=== PATIENT | female | born 1965 | race Two or more races ===

== ENCOUNTER 2024-02-05 10:44 | Inpatient (IN) | payer MEDICAID, OTHER ==
[~2024-02-05] VITALS: Ht 157.5 cm; Wt 51.8 kg
[2024-02-05] MEDS: ONDANSETRON HCL 4 MG/2 ML VIAL IV ONE (11:20)
[2024-02-05] MEDS: LORazepam 2MG/ML-1ML VIAL IV ONE ×3 (11:21→17:15)
[2024-02-05] MEDS: SODIUM CHLORIDE 0.9% 2,000 ML IV ONE (11:23)
[2024-02-05 11:50] LABS: Basophils # (auto) 0.1 10 ^3/uL (0-0.2); Basophils % (auto) 0.9 % (0.0-2.0); Eosinophils # (auto) 0 10 ^3/uL (0-0.8); Eosinophils % (auto) 0.1 % (0.0-7.0); Hematocrit 31.1 % (41.0-53.0); Hemoglobin 9.4 g/dL (13.5-17.5); Lymphocytes # (auto) 1.1 10 ^3/uL (0.4-5.4); Lymphocytes % (auto) 9.8 % (10.0-50.0); Mean Corpuscular Hemoglobin 20.2 pg (28.0-32.0); Mean Corpuscular Hgb Conc. 30.1 g/dL (32.0-36.0); Mean Corpuscular Volume 66.9 fL (80.0-100.0); Monocytes # (auto) 0.7 10 ^3/uL (0-1.3); Monocytes % (auto) 6.2 % (0.0-12.0); Neutrophils # (auto) 9.2 10 ^3/uL (1.6-8.6); Nucleated Red Blood Cells % 0.1 %; Red Blood Cells 4.65 10^6/uL (4.5-5.90); Red Cell Distribution Width 21.5 % (11.8-14.3); White Blood Cell 11.1 10^3/uL (4.4-10.8)
[2024-02-05 12:06] LABS: Alanine Aminotransferase 27 U/L (7-40); Albumin 3.5 g/dL (3.2-4.8); Alkaline Phosphatase 151 U/L (46-116); Anion Gap 8 (5-15); Aspartate Aminotransferase 31 U/L (13-40); Blood Urea Nitrogen 31 mg/dL (9-23); Carbon Dioxide 19 mmol/L (20-30); Chloride 107 mmol/L (98-107); Glucose 98 mg/dL (74-106); Potassium 3.9 mmol/L (3.5-5.1); Sodium 134 mmol/L (136-145)
[2024-02-05 12:07] LABS: Bilirubin, Total 0.2 mg/dL (0.2-1.0); Total Protein 6.9 g/dL (5.7-8.2)
[2024-02-05 12:32] VITALS: PULSE 120; O2SAT 98
[2024-02-05 12:56] LABS: Anisocytosis Moderate; Hypochromia Moderate; Platelet Estimate Increased
[2024-02-05] MEDS: SODIUM CHLORIDE 0.9% 1,000 ML IV ONE (17:21)
[2024-02-05 17:35] LABS: Free T3 2.39 pg/mL (2.3-4.2); Free T4 (Free Thyroxine) 0.92 ng/dL (0.89-1.76)
[2024-02-05] MEDS: SODIUM CHLORIDE 0.9% 1,000 ML IV SCH (21:12)
[2024-02-05] MEDS ORDERED: hydrALAZINE HCL 20 MG/ML VL IV PRN (21:30)
[2024-02-05] MEDS ORDERED: MORPHINE SULFATE INJ 2 MG/ml SYRG IV PRN (23:45)
[2024-02-05] MEDS ORDERED: NITROGLYCERIN 0.4 MG SL TAB SL PRN (23:45)
[2024-02-06] VITALS (7 sets, daily range): BP systolic 139–155; BP diastolic 82–91; PULSE 88–121; RESP 13–26; TEMP 97.5–98.6; O2SAT 94–100
[2024-02-06 05:35] LABS: Alanine Aminotransferase 22 U/L (7-40); Albumin 2.9 g/dL (3.2-4.8); Alkaline Phosphatase 122 U/L (46-116); Anion Gap 9 (5-15); Aspartate Aminotransferase 29 U/L (13-40); BUN/Creatinine Ratio 19.7 (10.0-20.0); Blood Urea Nitrogen 12 mg/dL (9-23); Calcium 8.2 mg/dL (8.7-10.4); Carbon Dioxide 18 mmol/L (20-30); Chloride 113 mmol/L (98-107); Glucose 74 mg/dL (74-106); Potassium 3.2 mmol/L (3.5-5.1); Sodium 140 mmol/L (136-145)
[2024-02-06 05:36] LABS: Bilirubin, Total 0.3 mg/dL (0.2-1.0); Total Protein 5.8 g/dL (5.7-8.2)
[2024-02-06] MEDS: ONDANSETRON HCL 4 MG/2 ML VIAL IV PRN (08:53)
[2024-02-06] MEDS: ENOXAPARIN SOD 30 MG/0.3 ML SYRINGE SC SCH (09:05)
[2024-02-06] MEDS: GABAPENTIN 100 MG CAP PO SCH (15:15)
[2024-02-06] MEDS: cloNIDine 0.1 mg/24hr 7 DAY PATCH TD SCH (15:23)
[2024-02-06 16:40] LABS: % Iron Saturation 13.9 % (15-50)
[2024-02-06] MEDS: POTASSIUM CHL 20 Meq TABLET PO ONE (18:46)
[2024-02-06] MEDS: BUPRENORPHINE -NALOXONE 2-0.5mg SL TAB SL ONE (20:13)
[2024-02-06] MEDS: LORazepam 2MG/ML-1ML VIAL IV PRN (22:00)
[2024-02-07] MEDS: HYDROcodone-ACET 5/325MG TAB PO PRN (03:53)
[2024-02-07 08:00] VITALS: PULSE 83
[2024-02-07 13:00] VITALS: BP 142/90; PULSE 106; RESP 16; TEMP 98.4; O2SAT 97
[2024-02-07] MEDS: HYDROmorphone HCL 2 MG/ML VL/or syr IV ONE (13:28)
[2024-02-07] MEDS: BUPRENORPHINE -NALOXONE 2-0.5mg SL TAB SL SCH ×2 (15:02→21:00)
[2024-02-07] MEDS: PANTOPRAZOLE 40 MG TAB PO ONE (16:48)
[2024-02-07 20:00] VITALS: PULSE 110; PULSE 97; RESP 22; O2SAT 97
[2024-02-07 21:00] VITALS: BP 146/83; PULSE 97; RESP 22; TEMP 99.4; O2SAT 97
[2024-02-07] MEDS ORDERED: TEMAZEPAM 15 MG CAP PO ONE (21:45)
[2024-02-08] VITALS (8 sets, daily range): BP systolic 107–142; BP diastolic 51–84; PULSE 88–104; RESP 20–28; TEMP 97.2–98.8; O2SAT 93–98
[2024-02-08] MEDS: DICYCLOMINE HCL 10 MG CAP PO PRN (09:05)
[2024-02-08] MEDS: PANTOPRAZOLE 40 MG/10 ML VIAL INJ IV SCH (17:06)
[2024-02-08] MEDS: MAALOX PLUS or MAALOX 30 ML PO PRN (17:07)
[2024-02-09] VITALS (10 sets, daily range): BP systolic 111–130; BP diastolic 67–75; PULSE 79–112; RESP 18–22; TEMP 97.2–99.6; O2SAT 95–100
[2024-02-09 06:13] LABS: Anion Gap 6 (5-15); Carbon Dioxide 26 mmol/L (20-30); Chloride 104 mmol/L (98-107); Potassium 3.1 mmol/L (3.5-5.1); Sodium 136 mmol/L (136-145)
[2024-02-09 06:14] LABS: Calcium 7.7 mg/dL (8.7-10.4)
[2024-02-09 06:20] LABS: BUN/Creatinine Ratio 18.2 (10.0-20.0); Blood Urea Nitrogen 10 mg/dL (9-23); Glucose 134 mg/dL (74-106); Magnesium 1.1 mg/dL (1.6-2.6)
[2024-02-09] MEDS: HYDROmorphone HCL 2 MG/ML VL/or syr IV PRN ×2 (09:48→13:58)
[2024-02-09] MEDS: MAGNESIUM SULFATE 1GM/100ML 100 ML IV SCH ×2 (11:00→20:38)
[2024-02-09] MEDS ORDERED: VANCOMYCIN PER PHARMACY 0 MG IV SCH (11:00)
[2024-02-09] MEDS: GABAPENTIN 300 MG CAP PO SCH (13:15)
[2024-02-09] MEDS: CALCIUM CARB 500 MG CHEW TAB PO SCH (13:18)
[2024-02-09] MEDS: VANCOMYCIN 1GM/200ML 200 ML IV ONE (13:34)
[2024-02-09] MEDS: NICOTINE 21MG/24 HR TOPICAL PATCH TD SCH (13:41)
[2024-02-09] MEDS: METOCLOPRAMIDE HCL 5MG/ml INJ 2ml VIAL IV PRN (13:52)
[2024-02-09] MEDS: ACETAMINOPHEN 325 MG TAB PO PRN (18:27)
[2024-02-09] MEDS: FERROUS SULFATE 325mg EC TAB PO SCH (18:45)
[2024-02-09] MEDS: D5W/SOD CHL 0.45%/KCL 40MEQ 1,000 ML IV SCH (20:30)
[2024-02-09] MEDS: MUPIROCIN 2% OINT 15gm or 22gm FOR MRSA NARES EACHNOSTRI SCH (21:47)
[2024-02-09] MEDS: VANCOMYCIN 750mg/150ml 150 ML IV SCH (22:49)
[2024-02-09] MEDS: DOCUSATE SOD 100 MG CAP PO PRN (23:29)
[2024-02-09] MEDS: POLYETHYLENE GLYCOL 17 GM PWDR PO ONE (23:30)
[2024-02-10] VITALS (8 sets, daily range): BP systolic 113–147; BP diastolic 70–97; PULSE 85–109; RESP 18–21; TEMP 98.3–99; O2SAT 98–100
[2024-02-10 06:19] LABS: Hematocrit 25.7 % (36.0-46.0); Lymphocytes # (auto) 1.2 10 ^3/uL (0.4-5.4); Monocytes # (auto) 0.7 10 ^3/uL (0-1.3); Neutrophils # (auto) 2.4 10 ^3/uL (1.6-8.6); White Blood Cell 4.3 10^3/uL (4.4-10.8)
[2024-02-10 06:21] LABS: Basophils # (auto) 0.1 10 ^3/uL (0-0.2); Basophils % (auto) 1.2 % (0.0-2.0); Eosinophils # (auto) 0.1 10 ^3/uL (0-0.8); Eosinophils % (auto) 1.6 % (0.0-7.0); Hemoglobin 7.8 g/dL (12.2-16.2); Lymphocytes % (auto) 27.8 % (10.0-50.0); Mean Corpuscular Hemoglobin 21.2 pg (28.0-32.0); Mean Corpuscular Hgb Conc. 30.5 g/dL (32.0-36.0); Mean Corpuscular Volume 69.7 fL (80.0-100.0); Monocytes % (auto) 15.2 % (0.0-12.0); Neutrophils % (auto) 54.2 % (37.0-80.0); Red Blood Cells 3.69 10^6/uL (4.0-5.20)
[2024-02-10] MEDS: OXYCODONE W/ ACETAMINOPHEN 5/325MG TABLET PO PRN (06:31)
[2024-02-10 06:38] LABS: Carbon Dioxide 25 mmol/L (20-30); Chloride 105 mmol/L (98-107); Potassium 3.4 mmol/L (3.5-5.1)
[2024-02-10 06:39] LABS: Anion Gap 6 (5-15); Sodium 136 mmol/L (136-145)
[2024-02-10 06:40] LABS: Calcium 7.7 mg/dL (8.7-10.4)
[2024-02-10 06:43] LABS: Glucose 108 mg/dL (74-106)
[2024-02-10 06:44] LABS: Blood Urea Nitrogen 7 mg/dL (9-23)
[2024-02-10 08:34] LABS: Platelet Estimate Adequate
[2024-02-10 08:35] LABS: Anisocytosis Slight; Hypochromia Moderate
[2024-02-10] MEDS: HYDROmorphone HCL 2 MG/ML VL/or syr IV ONE (11:16)
[2024-02-11 05:00] VITALS: BP 136/71; PULSE 100; RESP 20; TEMP 98.4; O2SAT 97
[2024-02-11 05:36] LABS: Basophils # (auto) 0.1 10 ^3/uL (0-0.2); Eosinophils # (auto) 0.1 10 ^3/uL (0-0.8); Hemoglobin 7.4 g/dL (12.2-16.2); Monocytes # (auto) 0.8 10 ^3/uL (0-1.3)
[2024-02-11 05:38] LABS: Basophils % (auto) 1.2 % (0.0-2.0); Eosinophils % (auto) 1.5 % (0.0-7.0); Hematocrit 24.6 % (36.0-46.0); Lymphocytes # (auto) 1.4 10 ^3/uL (0.4-5.4); Lymphocytes % (auto) 23.9 % (10.0-50.0); Mean Corpuscular Hemoglobin 20.9 pg (28.0-32.0); Mean Corpuscular Hgb Conc. 30.2 g/dL (32.0-36.0); Mean Corpuscular Volume 69.3 fL (80.0-100.0); Monocytes % (auto) 13.2 % (0.0-12.0); Neutrophils # (auto) 3.5 10 ^3/uL (1.6-8.6); Neutrophils % (auto) 60.2 % (37.0-80.0); Nucleated Red Blood Cells % 0.1 %; Red Blood Cells 3.55 10^6/uL (4.0-5.20); Red Cell Distribution Width 23.7 % (11.8-14.3); White Blood Cell 5.8 10^3/uL (4.4-10.8)
[2024-02-11 05:47] LABS: Chloride 107 mmol/L (98-107); Potassium 3.8 mmol/L (3.5-5.1); Sodium 137 mmol/L (136-145)
[2024-02-11 05:48] LABS: Anion Gap 3 (5-15); Carbon Dioxide 27 mmol/L (20-30)
[2024-02-11 05:49] LABS: Calcium 7.5 mg/dL (8.7-10.4)
[2024-02-11 05:53] LABS: Glucose 103 mg/dL (74-106)
[2024-02-11 05:54] LABS: Blood Urea Nitrogen 7 mg/dL (9-23)
[2024-02-11 08:00] VITALS: PULSE 105
[2024-02-11 09:35] VITALS: BP 145/82; PULSE 101; RESP 19; TEMP 97.8; O2SAT 98
[2024-02-11] MEDS: HYDROmorphone HCL 2 MG/ML VL/or syr IV PRN (13:58)
[2024-02-11] MEDS: cefTRIAXone 1GM/50ML D5W 50 ML IV SCH (13:58)
[2024-02-11 16:56] VITALS: BP 129/68; PULSE 103; RESP 19; TEMP 97.8; O2SAT 97
[2024-02-11 20:00] VITALS: PULSE 113; RESP 20
[2024-02-11 21:00] VITALS: BP 127/68; PULSE 100; RESP 20; TEMP 97.6; O2SAT 97
[2024-02-12] VITALS (8 sets, daily range): BP systolic 127–148; BP diastolic 69–84; PULSE 73–108; RESP 19–20; TEMP 97.9–98.4; O2SAT 96–99
[2024-02-12 05:13] LABS: Hematocrit 23.6 % (36.0-46.0)
[2024-02-12 05:15] LABS: Hemoglobin 7.3 g/dL (12.2-16.2)
[2024-02-12 05:26] LABS: Chloride 106 mmol/L (98-107); Potassium 3.9 mmol/L (3.5-5.1); Sodium 137 mmol/L (136-145)
[2024-02-12 05:27] LABS: Anion Gap 5 (5-15); Calcium 7.8 mg/dL (8.7-10.4); Carbon Dioxide 26 mmol/L (20-30)
[2024-02-12 05:32] LABS: GFR African American 180 mL/min; GFR Non-African American 149 mL/min; Glucose 113 mg/dL (74-106)
[2024-02-12 05:33] LABS: Albumin 2.6 g/dL (3.2-4.8)
[2024-02-12 05:34] LABS: Phosphorus 2.4 mg/dL (2.4-5.1)
[2024-02-12 05:53] LABS: BUN/Creatinine Ratio 10.9 (10.0-20.0); Blood Urea Nitrogen < 5 mg/dL (9-23)
[2024-02-13] VITALS (8 sets, daily range): BP systolic 113–162; BP diastolic 67–90; PULSE 91–108; RESP 16–20; TEMP 98.1–98.6; O2SAT 96–99
[2024-02-13] MEDS: levoFLOXacin 500MG 100 ML IV SCH (10:27)
[2024-02-13] MEDS: LACTATED RINGER'S 1,000 ML IV SCH (14:30)
[2024-02-13] MEDS: PANTOPRAZOLE 40 MG/10 ML VIAL INJ IV SCH (22:41)
[2024-02-14] VITALS (7 sets, daily range): BP systolic 126–146; BP diastolic 56–93; PULSE 88–109; RESP 16–19; TEMP 97.9–99.1; O2SAT 96–100
[2024-02-14 15:02] LABS: Basophils # (auto) 0.1 10 ^3/uL (0-0.2); Eosinophils # (auto) 0.1 10 ^3/uL (0-0.8); Hemoglobin 7.7 g/dL (12.2-16.2); Lymphocytes % (auto) 21.5 % (10.0-50.0); Mean Corpuscular Volume 70.1 fL (80.0-100.0)
[2024-02-14 15:04] LABS: Basophils % (auto) 1.7 % (0.0-2.0); Eosinophils % (auto) 2.1 % (0.0-7.0); Hematocrit 24.7 % (36.0-46.0); Mean Corpuscular Hemoglobin 21.8 pg (28.0-32.0); Monocytes # (auto) 0.6 10 ^3/uL (0-1.3); Monocytes % (auto) 13.6 % (0.0-12.0); Neutrophils # (auto) 2.7 10 ^3/uL (1.6-8.6); Neutrophils % (auto) 61.1 % (37.0-80.0); Red Blood Cells 3.52 10^6/uL (4.0-5.20); White Blood Cell 4.5 10^3/uL (4.4-10.8)
[2024-02-14 15:08] LABS: Red Cell Distribution Width 24.5 % (11.8-14.3)
[2024-02-14 15:11] LABS: Chloride 104 mmol/L (98-107); Potassium 3.6 mmol/L (3.5-5.1); Sodium 137 mmol/L (136-145)
[2024-02-14 15:12] LABS: Anion Gap 5 (5-15); Carbon Dioxide 28 mmol/L (20-30)
[2024-02-14 15:17] LABS: BUN/Creatinine Ratio 16.3 (10.0-20.0); Blood Urea Nitrogen 8 mg/dL (9-23); Glucose 94 mg/dL (74-106)
[2024-02-14] MEDS: HYDROmorphone HCL 2 MG/ML VL/or syr IV PRN (15:53)
[2024-02-15] VITALS (8 sets, daily range): BP systolic 113–142; BP diastolic 60–79; PULSE 85–104; RESP 16–20; TEMP 98.1–98.8; O2SAT 92–98
[2024-02-15] MEDS: PANTOPRAZOLE 40 MG TAB PO SCH (05:55)
[2024-02-15] MEDS: levoFLOXacin 500 MG TAB PO SCH (10:15)
[2024-02-15] MEDS: OXYCODONE W/ ACETAMINOPHEN 5/325MG TABLET PO PRN (14:09)
[2024-02-15] MEDS: OLANZapine 5 MG TAB PO SCH (21:21)
[2024-02-15] MEDS: traZODone HCL 50 MG TAB PO SCH (21:21)
[2024-02-16] VITALS (8 sets, daily range): BP systolic 120–152; BP diastolic 56–88; PULSE 86–106; RESP 14–18; TEMP 97.4–98.8; O2SAT 92–96
[2024-02-17 01:00] VITALS: BP 120/56; PULSE 104; RESP 18; TEMP 98.4; O2SAT 93
[2024-02-17] MEDS: TEMAZEPAM 15 MG CAP PO ONE (03:07)
[2024-02-17 05:00] VITALS: BP 112/64; PULSE 89; RESP 18; TEMP 98.2
[2024-02-17 09:00] VITALS: BP 131/75; PULSE 84; RESP 17; TEMP 98; O2SAT 91
[2024-02-17 13:30] VITALS: BP 121/72; PULSE 96; RESP 17; TEMP 97.5; O2SAT 94
[2024-02-17] MEDS: hydrOXYzine 25 MG TAB or CAP PO PRN (14:38)
[2024-02-17 17:00] VITALS: BP_SYST 125; BP_SYST 157; BP_DIAS 75; BP_DIAS 90; PULSE 88; PULSE 91; RESP 16; RESP 18; TEMP 98; O2SAT 94; O2SAT 97
[2024-02-17 21:00] VITALS: BP 128/73; PULSE 100; RESP 18; TEMP 98.4; O2SAT 94
[2024-02-18 01:00] VITALS: BP 134/73; PULSE 96; RESP 18; TEMP 98.2; O2SAT 94
[2024-02-18 05:00] VITALS: BP 140/75; PULSE 87; RESP 18; TEMP 97.7; O2SAT 93
[2024-02-18 08:17] VITALS: BP 130/74; PULSE 95; RESP 20; TEMP 98.3; O2SAT 93
== END 2024-02-18 11:25 | disposition left against medical advice (07) | DRG 720 ==
LOC: ER 10:44 → EDBD 10:44 → TELE 23:42 → EDSEX 23:42 → TELE-WESTW 02-06 07:42 → TELE-EAST 02-07 09:55 → EAST 02-13 19:03 → CENTRAL 02-16 22:20
PROVIDERS: ADMIT Nurse Practitioner Family; ATTEND Nurse Practitioner Acute Care
DX: A41.9 Sepsis, unspecified organism (principal); G93.41 Metabolic encephalopathy; E44.0 Moderate protein-calorie malnutrition; L03.115 Cellulitis of right lower limb; D50.9 Iron deficiency anemia, unspecified; F17.210 Nicotine dependence, cigarettes, uncomplicated; E83.42 Hypomagnesemia; T40.601A Poisoning by unspecified narcotics, accidental (unintentional), initial encounter; E86.0 Dehydration; F11.23 Opioid dependence with withdrawal; I10 Essential (primary) hypertension; L03.116 Cellulitis of left lower limb; E87.6 Hypokalemia; Z53.29 Procedure and treatment not carried out because of patient's decision for other reasons; B96.4 Proteus (mirabilis) (morganii) as the cause of diseases classified elsewhere; F31.9 Bipolar disorder, unspecified; Z99.3 Dependence on wheelchair; Z86.14 Personal history of Methicillin resistant Staphylococcus aureus infection; Y92.89 Other specified places as the place of occurrence of the external cause; Z98.51 Tubal ligation status; Z68.20 Body mass index [BMI] 20.0-20.9, adult; Z91.51 Personal history of suicidal behavior; Z88.5 Allergy status to narcotic agent; F41.9 Anxiety disorder, unspecified
CPT/HCPCS: 36415; 70450; 71045; 73700; 74018; 80048; 80053; 80069; 80202; 82728; 82962; 83540; 83550; 83605; 83735; 84439; 84443; 84481; 85014; 85018; 85025; 86850; 86870; 86900; 86901; 87077; 87081; 87186; 87205; 93005; 93306; 96361; 96374; 96375; 96376; 97110; 97116; 97163; 97530; G0378; J1956; J2405; J2470

== ENCOUNTER 2025-06-25 17:40 | Emergency (ER) | payer MEDICAID ==
[~2025-06-25] VITALS: Ht 160 cm; Wt 50.0 kg
[2025-06-25] MEDS ORDERED: ATEN-60 PO (19:15)
[2025-06-25] MEDS ORDERED: CLON0.1T PO (19:15)
--- NOTE | 2025-06-25 20:14 | ED.PDOC ---
History of Present Illness HPI Comments 59-year-old female, with history of hypertension, is brought in by mother for chief complaint of headache. Patient reports onset of headache after cessation of her new blood pressure medications her primary care placed her on, recently. She states on being on clonidine and atenolol before. Upon arrival to ED triage, patient had a blood pressure 151/84 and a pulse rate of 104. Patient denies having any chest pain, shortness of breath, dizziness, vision or speech changes, or further acute symptoms. Chief Complaint: Headache Time Seen by MD: 19:10 Primary Care Provider: DENIES Reviewed Notes: Nurses Notes Allergies: Coded Allergies: Codeine (Verified Allergy, Intermediate, 02/07/24) Azithromycin (Verified Allergy, Unknown, 02/07/24) Per PT her throat swells up and she can't breath. Epinephrine (Verified Allergy, Unknown, 06/25/25) Home Meds Active Scripts Clonidine Hydrochloride (Clonidine Hcl) 0.1 Mg Tab, 0.1 MG PO BID for 90 Days, #180 TAB 3 Refills Prov:YANELY HENDRICKS MD 06/25/25 Atenolol (Atenolol) 25 Mg Tab, 1 TAB PO DAILY, #90 TAB 3 Refills Prov:YANELY HENDRICKS MD 06/25/25 Information Source: Patient, Relative (Mother) Mode of Arrival: Wheelchair Severity: Moderate Timing: Days Duration: Since onset Prehospital treatment: None Past Medical History PAST MEDICAL HISTORY: HTN Surgical History: Denies all surgeries Family History Family History: Reviewed,noncontributory to illness Social History Smoker: Cigarettes Alcohol: Denies ETOH Use Drugs: Other Lives In: Home All Other Systems: Reviewed and Negative (Comprehensive review of systems are negative unless otherwise stated in HPI) Physical Exam General Appearance: No Apparent Distress, Normal HEENT: Normal ENT Inspection, Pharynx Normal, TMs Normal Neck: Full Range of Motion, Non-Tender, Normal, Normal Inspection Respiratory: Chest Non-Tender, Lungs Clear, No Accessory Muscle Use, No Respiratory Distress, Normal Breath Sounds Cardiovascular: No Edema, No JVD, No Murmur, No Gallop, Normal Peripheral Pulses, Regular Rate/Rhythm Breast Exam: Deferred Gastrointestinal: No Organomegaly, Non Tender, No Pulsatile Mass, Normal Bowel Sounds, Soft Genitalia: Deferred Pelvic: Deferred Rectal: Deferred Extremities: No calf tenderness, Normal capillary refill, Normal inspection, Normal range of motion, Non-tender, No pedal edema Musculoskeletal : Apperance: Normal Neurologic: Alert, door tender II-XII nml as Tested, No Motor Deficits, Normal Affect, Normal Mood, No Sensory Deficits Cerebellar Function: Normal Reflexes: Normal Skin: Dry, Normal Color, Warm Lymphatic: No Adenopathy Was a procedure done? Was a procedure done?: No Differential Dx Considerations may include: Hypertension, medication noncompliance, dehydration, electrolyte imbalance, or among others X-Ray, Labs, Meds, VS Vital Signs Date Time Temp Pulse Resp B/P (MAP) Pulse Ox O2 Delivery O2 Flow Rate FiO2 06/25/25 20:55 153/90 06/25/25 20:47 98.2 98 16 153/90 (111) 96 98.2 06/25/25 20:47 98 13 96 Room Air* 0 21 06/25/25 17:42 97.8 102 16 151/84 98 97.8 Current Medications Medications (Trade) Dose Ordered Sig/Mary Route Start Time Stop Time Status Last Admin Clonidine HCl (Catapres Tablet) 0.1 mg ONCE ONCE PO 06/25/25 19:15 06/25/25 19:16 DC 06/25/25 20:55 Time of 1ST Reevaluation: 19:40 Reevaluation 1ST: Unchanged Patient Education/Counseling: Diagnosis, Treatment, Need For Follow Up Family Education/Counseling: Diagnosis, Treatment, Need For Follow Up SEPSIS Sepsis Screen Date sepsis recognized/suspect: Jun 25, 2025 Time Sepsis recognized/suspect: 1741 Recent Procedure: No On Antibiotic Therapy: No Respiratory Rate >20: No Heart Rate >90: Yes Temp<36 C (96.8 F) or >38.3 C: No SBP <90 or MAP <65 mmHG: No New Acute Mental Status Change: No Is the patient on CPAP, BIPAP,: No Vital Signs Date Time Temp Pulse Resp B/P (MAP) Pulse Ox O2 Delivery O2 Flow Rate FiO2 06/25/25 20:55 153/90 06/25/25 20:47 98.2 98 16 153/90 (111) 96 98.2 06/25/25 20:47 98 13 96 Room Air* 0 21 06/25/25 17:42 97.8 102 16 151/84 98 97.8 Medications Medications Dose Ordered Sig/Mary Route Start Time Stop Time Status Last Admin Dose Admin Clonidine HCl 0.1 mg ONCE ONCE PO 06/25/25 19:15 06/25/25 19:16 DC 06/25/25 20:55 Departure 1 Departure Time of Disposition: 21:40 Impression: Primary Impression: Hypertension Additional Impression: Headache Disposition: HOME / SELF CARE / HOMELESS Condition: Stable Additional Instructions: Follow up with your primary physician Return to the ED for any worsening symptoms or concerns for any worsening symptoms or concerns e-Prescriptions Clonidine Hydrochloride (Clonidine Hcl) 0.1 Mg Tab 0.1 MG PO BID for 90 Days, #180 TAB 3 Refills Prov: YANELY HENDRICKS MD 06/25/25 Atenolol (Atenolol) 25 Mg Tab 1 TAB PO DAILY, #90 TAB 3 Refills Prov: YANELY HENDRICKS MD 06/25/25 Discharged With: Self Critical Care Note Critical Care Time?: No Stability Stability form required: No Heart Score Heart Score: Heart Score Response (Comments) Value History N/A 0 EKG N/A 0 Age N/A 0 Risk Factors N/A 0 Troponin N/A 0 Total 0 I personally scribed for YANELY HENDRICKS MD ([email or web address]) on 06/25/25 at 20:14. Electronically submitted by Chente Perales ([email or web address]). YANELY HENDRICKS MD Jun 25, 2025 20:14
[2025-06-25 20:47] VITALS: BP 153/90; PULSE 98; RESP 13; TEMP 98.2; O2SAT 96
== END 2025-06-25 21:00 | disposition home or self-care (01) ==
LOC: ER 17:40
DX: I10 Essential (primary) hypertension (principal); R51.9 Headache, unspecified; F17.210 Nicotine dependence, cigarettes, uncomplicated; Z88.1 Allergy status to other antibiotic agents; Z88.5 Allergy status to narcotic agent; Z79.899 Other long term (current) drug therapy